=== PATIENT | female | born 1965 | race American Indian/Alaskan Native ===

== ENCOUNTER 2019-03-30 15:47 | Emergency (ER) | payer SELFPAY ==
[2019-03-30 16:21] VITALS: BP 103/74
--- NOTE | 2019-03-30 16:21 | Event Note ---
ED Screening Note Date of service: 03/30/19 Time: 16:17 ED Screening Note: This is a 53 y.o. F. that presents to the ER with left knee pain and low back pain s/p fall 1 hour [employer]. Patient states she slipped in fell in [employer]. PMH of arthritis This initial assessment/diagnostic orders/clinical plan/treatment(s) is/are subject to change based on patients health status, clinical progression and re- assessment by fellow clinical providers in the ED. Further treatment and workup at subsequent clinical providers discretion. Patient/guardian urged not to elope from the ED as their condition may be serious if not clinically assessed and managed. Initial orders include: XR L-spine and left knee
--- NOTE | 2019-03-30 17:14 | XRay Report ---
Left knee, 3 views INDICATION: Knee pain following fall FINDINGS: The joint spaces are intact. No fracture or joint effusion. Only slight spurring is seen. N o erosions or chondrocalcinosis. No significant abnormality. Signer Name: Tommy So MD Signed: 03/30/2019 5:10 PM Workstation Name: [id number]
--- NOTE | 2019-03-30 17:28 | Emergency Department Report ---
ED Fall HPI - General Chief Complaint: Fall Stated Complaint: FALL INJURY/BACK PAIN Time Seen by Provider: 03/30/19 16:17 Source: patient Mode of arrival: Ambulatory - History of Present Illness Initial Comments: This is a 53-year-old nontoxic, well nourished in appearance, no acute signs of distress presents to the ED with c/o of lower back pain and left knee pain status post trip and fall this morning. MD Complaint: fall -: This evening Fall From: standing Place Fall Occurred: other (store) Loss of Consciousness: none Prolonged Down Time?: no Symptoms Prior to Fall: none Location: back Location - Extremities: Left: Knee Severity: mild Severity scale (0 -10): 8 Quality: aching Context: tripped/slipped Associated Symptoms: denies. denies: headache, neck pain, numbness, weakness, chest paint, shortness of breath, abdominal pain, hematuria, unable to walk, lightheaded, vertigo, confusion - Related Data Previous Rx's Medication Instructions Recorded Last Taken Type Acetaminophen/Codeine [Tylenol 1 tab PO Q6H PRN #12 tab 03/30/19 Unknown Rx /Codeine # 3 tab] Allergies Allergy/AdvReac Type Severity Reaction Status Date / Time No Known Allergies Allergy Unverified 03/30/19 15:48 ED Review of Systems ROS: Stated complaint: FALL INJURY/BACK PAIN Other details as noted in HPI Constitutional: denies: chills, fever Eyes: denies: eye pain, eye discharge, vision change ENT: denies: ear pain, throat pain Respiratory: denies: cough, shortness of breath, wheezing Cardiovascular: denies: chest pain, palpitations Endocrine: no symptoms reported Gastrointestinal: denies: abdominal pain, nausea, diarrhea Genitourinary: denies: urgency, dysuria, discharge Musculoskeletal: back pain, arthralgia. denies: joint swelling Skin: denies: rash, lesions Neurological: denies: headache, weakness, paresthesias Psychiatric: denies: anxiety, depression Hematological/Lymphatic: denies: easy bleeding, easy bruising ED Past Medical Hx - Past Medical History Previous Medical History?: No - Surgical History Additional Surgical History: C SECTION - Social History Smoking Status: Never Smoker Substance Use Type: None - Medications Home Medications: Home Medications Medication Instructions Recorded Confirmed Last Taken Type Acetaminophen/Codeine [Tylenol 1 tab PO Q6H PRN #12 tab 03/30/19 Unknown Rx /Codeine # 3 tab] ED Physical Exam - General Limitations: No Limitations General appearance: alert, in no apparent distress - Head Head exam: Present: atraumatic, normocephalic - Neck Neck exam: Present: normal inspection, full ROM. Absent: tenderness, meningismus, lymphadenopathy - Extremities Exam Extremities exam: Present: normal inspection, full ROM, tenderness, normal capillary refill. Absent: joint swelling, calf tenderness - Expanded Lower Extremity Exam Left Hip exam: Present: normal inspection, full ROM. Absent: tenderness, swelling Upper Leg exam: Present: normal inspection, full ROM. Absent: tenderness, swelling Knee exam: Present: normal inspection, full ROM, tenderness, full knee extension. Absent: swelling, abrasion, laceration, ecchymosis, deformity, crepidus, dislocation, erythema, effusion, pain w/ pronation/supination, posterior draw sign, pain/laxity with valgus, pain/laxity with varus Lower Leg exam: Present: normal inspection, full ROM. Absent: tenderness, swelling Ankle exam: Present: normal inspection, full ROM. Absent: tenderness, swelling Foot/Toe exam: Present: normal inspection, full ROM. Absent: tenderness, swelling Neuro vascular tendon exam: Present: no vascular compromise Gait: Positive: observed and normal - Back Exam Back exam: Present: normal inspection, full ROM, paraspinal tenderness (lumbar paraspinal). Absent: tenderness, CVA tenderness (R), CVA tenderness (L), muscle spasm, vertebral tenderness, rash noted - Neurological Exam Neurological exam: Present: alert, oriented X3, normal gait - Psychiatric Psychiatric exam: Present: normal affect, normal mood - Skin Skin exam: Present: warm, dry, intact, normal color. Absent: rash ED Course Vital Signs 03/30/19 16:17 Temperature 98.3 F Pulse Rate 87 Respiratory 18 Rate Blood Pressure 103/74 O2 Sat by Pulse 100 Oximetry - Reevaluation(s) Reevaluation #1: 03/30/19 18:33 Patient is speaking in full sentences with no signs of distress noted. ED Medical Decision Making - Medical Decision Making This is a 53-year-old female that presents with low back strain and left knee strain. Patient is stable was examined by me. There is no cauda equina syndrome during examination. No bladder or bowel instability. X-rays of lumbar and knee has been obtained and dictated by radiologist unremarkable. Patient received Motrin in the ED which stated that her symptoms has resolved and subsided. Patient is discharged with Tylenol with Codeine. Patient was instructed not to operate any machinery while taking Tylenol with codeine as they cause her drowsiness. Patient was referred to Follow-up with a primary care doctor in 3-5 days or if symptoms worsen and continue return to emergency room as soon as possible. At time of discharge, the patient does not seem toxic or ill in appearance. No acute signs of distress noted. Patient agrees to discharge treatment plan of care. No further questions noted by the patient. This chart is dictated with using [employer] - Differential Diagnosis lumbar fracture, strain, cauda equina syndrome Critical care attestation.: If time is entered above; I have spent that time in minutes in the direct care of this critically ill patient, excluding procedure time. ED Disposition Clinical Impression: Fall Qualifiers: Encounter type: initial encounter Qualified Code(s): W19.XXXA - Unspecified fall, initial encounter Low back strain Qualifiers: Encounter type: initial encounter Qualified Code(s): S39.012A - Strain of muscle, fascia and tendon of lower back, initial encounter Strain of left knee Qualifiers: Encounter type: initial encounter Qualified Code(s): S86.912A - Strain of unspecified muscle(s) and tendon(s) at lower leg level, left leg, initial encounter Disposition: DC- TO HOME OR SELFCARE Is pt being admited?: No Does the pt Need Aspirin: No Condition: Stable Instructions: Low Back Strain (ED), RICE Therapy (ED), Knee Pain (ED), Acetaminophen/Codeine (By mouth) Additional Instructions: Follow-up with a orthopedic doctor in 3-5 days or if symptoms worsen and continue return to emergency room as soon as possible. Do not operate any machinery while taking Tylenol with codeine as this may cause drowsiness. Prescriptions: Acetaminophen/Codeine [Tylenol /Codeine # 3 tab] 1 tab PO Q6H PRN #12 tab PRN Reason: Pain , Severe (7-10) Referrals: PRIMARY CARE, [Referring] - 3-5 Days ANGIE JIMENEZ MD [Staff Physician] - 3-5 Days [facility] [Outside] - 3-5 Days Forms: Work/School Release Form(ED) Time of Disposition: 18:36
[2019-03-30] MEDS ORDERED: IBUPROFEN PO ONE (17:33)
--- NOTE | 2019-03-30 17:50 | XRay Report ---
Lumbosacral spine, 3 views INDICATION: Back pain following fall today FINDINGS: The vertebral body heights are intact with no compression fractures seen. There is severe d isc space narrowing at L3-L4 with vacuum disc change, spurring and endplate sclerosis. The remaining levels are unremarkable. No spondylolisthesis is seen. No facet arthropathy. SI joints are grossly in tact. No acute traumatic abnormality. IMPRESSION: Degenerative disc disease L3-L4. Signer Name: Tommy So MD Signed: 03/30/2019 5:46 PM Workstation Name: [id number]
== END 2019-03-30 18:59 | disposition home or self-care (01) ==
LOC: ED 15:47
DX: S39.012A Strain of muscle, fascia and tendon of lower back, initial encounter (principal); S86.912A Strain of unspecified muscle(s) and tendon(s) at lower leg level, left leg, initial encounter; W01.0XXA Fall on same level from slipping, tripping and stumbling without subsequent striking against object, initial encounter; Y93.89 Activity, other specified; Y92.89 Other specified places as the place of occurrence of the external cause; Y99.8 Other external cause status
CPT/HCPCS: 72100